=== PATIENT | female | born 1985 | race African-American/Black ===

== ENCOUNTER 2016-11-09 03:45 | Emergency (ER) | payer SELFPAY ==
[~2016-11-09] VITALS: Ht 162.6 cm; Wt 122.5 kg
[2016-11-09 04:08] LABS: Urine Bilirubin Negative (Negative); Urine Blood Negative /uL (Negative); Urine Color Yellow (Yellow); Urine Glucose Normal (Normal); Urine Ketone Negative (Negative); Urine Nitrite Negative (Negative); Urine RBC <1 /hpf (0 - 4); Urine Squamous Epithelial Cell FEW /hpf (<5); Urine Urobilinogen Normal (Negative)
[2016-11-09 04:37] LABS: Albumin 3.3 g/dL (3.4-5.0); BUN/Creatinine Ratio 21.1; Bilirubin, Total 0.6 mg/dL (0.2-1.0); Calcium 8.9 mg/dL (8.5-10.1); Magnesium 2.2 mg/dL (1.6-2.6); Potassium 3.7 mmol/L (3.5-5.1); Total Protein 7.7 g/dL (6.4-8.2)
[2016-11-09 04:38] LABS: Basophils # (auto) 0.1 uL; Basophils % (auto) 0.7 % (0.0-2.0); Eosinophils # (auto) 0 uL; Eosinophils % (auto) 0.3 % (0.0-7.0); Hematocrit 43.4 % (36.0-46.0); Hemoglobin 13.8 g/dL (12.2-16.2); Lymphocytes # (auto) 1.6 uL; Lymphocytes % (auto) 14.6 % (10.0-50.0); Mean Corpuscular Hemoglobin 29.5 pg (28.0-32.0); Mean Corpuscular Hgb Conc. 31.7 g/dL (32.0-36.0); Mean Corpuscular Volume 92.9 fL (80.0-100.0); Monocytes # (auto) 0.5 uL; Monocytes % (auto) 4.3 % (0.0-12.0); Neutrophils # (auto) 8.4 uL; Neutrophils % (auto) 80.1 % (37.0-80.0); Platelet Count (auto) 318 10^3/uL (140-450); Red Cell Distribution Width 12.6 % (11.6-16.0); White Blood Cell 10.6 10^3/uL (4.4-10.8)
[2016-11-09] MEDS ORDERED: SODIUM CHLORIDE 0.9% 1,000 ML IVB ONE (06:57)
[2016-11-09] MEDS ORDERED: METOCLOPRAMIDE HCL 5MG/ml INJ 2ml VIAL IV ONE (07:00)
[2016-11-09] MEDS ORDERED: KETOROLAC TROMETH 30 MG/ML 1ML VIAL IV ONE (07:00)
[2016-11-09 09:59] VITALS: BP 116/72
== END 2016-11-09 10:11 | disposition home or self-care (01) ==
LOC: ER 03:46
DX: N39.0 Urinary tract infection, site not specified (principal); R11.2 Nausea with vomiting, unspecified
CPT/HCPCS: 36415; 76705; 80053; 80307; 81001; 81025; 83690; 83735; 85025; 96361; 96374; 96375; 99285; J1885; J2765; J7030

== ENCOUNTER 2020-01-25 06:27 | Inpatient (IN) | payer MEDICAID ==
[~2020-01-25] VITALS: Ht 160 cm; Wt 127.0 kg
[2020-01-25] MEDS ORDERED: SODIUM CHLORIDE 0.9% 1,000 ML IVB ONE (09:02)
[2020-01-25] MEDS ORDERED: PANTOPRAZOLE 40 MG/10 ML VIAL INJ IV STA (09:02)
[2020-01-25] MEDS ORDERED: ONDANSETRON HCL 4 MG/2 ML VIAL IV ONE ×2 (09:15→10:30)
[2020-01-25] MEDS ORDERED: MORPHINE SULFATE 4 MG/ML SYR/VIAL IV ONE ×2 (09:15→10:30)
[2020-01-25 09:44] LABS: Basophils # (auto) 0 10 ^3/uL (0-0.2); Basophils % (auto) 0.1 % (0.0-2.0); Eosinophils # (auto) 0 10 ^3/uL (0-0.8); Hematocrit 43.2 % (36.0-46.0); Hemoglobin 14.1 g/dL (12.2-16.2); Lymphocytes # (auto) 0.8 10 ^3/uL (0.4-5.4); Lymphocytes % (auto) 6.3 % (10.0-50.0); Mean Corpuscular Hemoglobin 30.6 pg (28.0-32.0); Mean Corpuscular Hgb Conc. 32.8 g/dL (32.0-36.0); Mean Corpuscular Volume 93.4 fL (80.0-100.0); Monocytes # (auto) 0.4 10 ^3/uL (0-1.3); Monocytes % (auto) 2.9 % (0.0-12.0); Neutrophils # (auto) 11.5 10 ^3/uL (1.6-8.6); Neutrophils % (auto) 90.7 % (37.0-80.0); Nucleated Red Blood Cells % 0.1 %; Platelet Count (auto) 356 10^3/uL (140-450); Red Blood Cells 4.62 10^6/uL (4.0-5.20); Red Cell Distribution Width 12.7 % (11.8-14.3); White Blood Cell 12.6 10^3/uL (4.4-10.8)
[2020-01-25 09:52] LABS: Albumin 3.7 g/dL (3.4-5.0); Calcium 9.5 mg/dL (8.5-10.1); Potassium 3.7 mmol/L (3.5-5.1)
[2020-01-25 09:57] LABS: BUN/Creatinine Ratio 14.5; Total Protein 8.6 g/dL (6.4-8.2)
[2020-01-25] MEDS ORDERED: HYDROcodone-ACET 5/325MG TAB PO PRN (13:45)
[2020-01-25] MEDS ORDERED: LORazepam 0.5 MG TAB PO PRN (13:45)
[2020-01-25] MEDS ORDERED: ACETAMINOPHEN 325 MG TAB PO PRN (13:45)
[2020-01-25] MEDS: SODIUM CHLORIDE 0.9% 1,000 ML IV SCH (14:00)
[2020-01-25] MEDS ORDERED: HYDR-392 PO (14:41)
[2020-01-25 15:00] LABS: Basophils # (auto) 0 10 ^3/uL (0-0.2); Basophils % (auto) 0.3 % (0.0-2.0); Eosinophils # (auto) 0 10 ^3/uL (0-0.8); Eosinophils % (auto) 0.1 % (0.0-7.0); Hematocrit 44.5 % (36.0-46.0); Hemoglobin 14.8 g/dL (12.2-16.2); Lymphocytes # (auto) 1.3 10 ^3/uL (0.4-5.4); Lymphocytes % (auto) 11.6 % (10.0-50.0); Mean Corpuscular Hemoglobin 31.2 pg (28.0-32.0); Mean Corpuscular Hgb Conc. 33.2 g/dL (32.0-36.0); Mean Corpuscular Volume 93.8 fL (80.0-100.0); Monocytes # (auto) 0.6 10 ^3/uL (0-1.3); Monocytes % (auto) 4.9 % (0.0-12.0); Neutrophils # (auto) 9.6 10 ^3/uL (1.6-8.6); Neutrophils % (auto) 83.1 % (37.0-80.0); Platelet Count (auto) 305 10^3/uL (140-450); Red Blood Cells 4.75 10^6/uL (4.0-5.20); Red Cell Distribution Width 12.6 % (11.8-14.3); White Blood Cell 11.5 10^3/uL (4.4-10.8)
[2020-01-25 15:12] LABS: INR 0.97 (0.9-1.15)
--- NOTE | 2020-01-25 15:53 | NUR ---
MS admit from ER VIRGIL FERNANDEZ admitted to tele/MS after SBAR received. Patient oriented to MILDRED ROBERTSON, primary RN, unit, room, bed, and unit policies regarding patient care and visiting hours. Patient weighed by bedscale and encouraged to call if they need something. All questions and concerns addressed, patient verbalized understanding.
[2020-01-25] MEDS: DOCUSATE SOD 100 MG CAP PO PRN (16:30)
[2020-01-25] MEDS: ONDANSETRON HCL 4 MG/2 ML VIAL IV PRN ×2 (16:30→21:39)
[2020-01-25] MEDS: MORPHINE SULF INJ 2 MG/ML SYRINGE 1ML IV PRN ×2 (16:30→21:38)
[2020-01-25 17:00] VITALS: BP 122/76
--- NOTE | 2020-01-25 18:16 | NUR ---
CONSENTS PRINTED AND PLACED IN THE CHART, CHECK LIST PARTIALLY COMPLETED. CONSENTS TO BE SIGNED TONIGHT DUE TO PATIENT HAD A NARCOTIC AND NEEDS TO WAIT UNTIL 2029 TO SIGN DOCUMENTS.
--- NOTE | 2020-01-25 19:16 | NUR ---
endorsed care to night rn
--- NOTE | 2020-01-25 19:30 | NUR ---
Opening Shift Note Assumed care of patient, awake and alert. No S/S of distress/SOB or pain. Instructed on POC and to call for assist PRN, will continue to monitor for changes Q1hr and PRN. Bed locked in lowest position, HOB elevated at least 30 degrees, side rails up x 2 and call light is within reach.
[2020-01-25 20:00] VITALS: BP 142/82
[2020-01-25 22:00] VITALS: BP 142/82
--- NOTE | 2020-01-25 23:50 | NUR ---
UA COLLECTED UA COLLECTED AND SENT TO LAB
[2020-01-26 00:11] LABS: Urine Bacteria FEW /hpf (None Seen); Urine Blood Negative /uL (Negative); Urine Hyaline Cast FEW /lpf (0 - 2); Urine Mucus FEW (None Seen); Urine Specific Gravity 1.009 (1.001-1.035); Urine WBC 21 /hpf (0 - 5)
[2020-01-26 05:00] VITALS: BP 124/71
[2020-01-26] MEDS: ONDANSETRON HCL 4 MG/2 ML VIAL IV PRN ×3 (06:12→19:37)
[2020-01-26] MEDS: MORPHINE SULF INJ 2 MG/ML SYRINGE 1ML IV PRN ×3 (06:12→19:37)
[2020-01-26] MEDS: SODIUM CHLORIDE 0.9% 1,000 ML IV SCH (06:26)
--- NOTE | 2020-01-26 07:18 | NUR ---
END OF SHIFT NOTE ENDORSED CARE TO DAY SHIFT RN
--- NOTE | 2020-01-26 07:30 | NUR ---
Opening Shift Note Assumed care of patient, sleeping , respirations relaxed and even. No S/S of distress/SOB or pain.Patient reminded to remain NPO for procedure. Instructed on POC and to call for assist PRN, will continue to monitor for changes Q1hr and PRN. Bed locked in lowest position, Bed flat, side rails up x 2 and call light is within reach.
[2020-01-26 08:00] VITALS: BP 137/82
[2020-01-26 08:52] VITALS: BP 101/54
--- NOTE | 2020-01-26 09:50 | NUR ---
TAKEN TO PROCEDURE ENDORSED CARE TO PREOP AMADO MEDEIROS. PATIENT TOLERATED WELL.
[2020-01-26] MEDS ORDERED: ceFAZolin 1GM/50ML 50 ML IV ONE (09:59)
[2020-01-26] MEDS ORDERED: LIDOCAINE 1% (LOCAL ANESTH.) PF 5ml SDV ONE (10:29)
[2020-01-26] MEDS ORDERED: SUCCINYLCHOLINE CHLORIDE 20 MG/ML 10ML VIAL IV ONE (10:29)
[2020-01-26] MEDS ORDERED: MIDAZOLAM HCL 1MG/1ML-2 ML VIAL ONE (10:34)
[2020-01-26] MEDS ORDERED: PROPOFOL 10 MG/ML 20 ML IV ONE (10:35)
[2020-01-26] MEDS ORDERED: ROCURONIUM 10MG/ML 10ML VIAL IV ONE (10:35)
[2020-01-26] MEDS ORDERED: METOCLOPRAMIDE HCL 5MG/ml INJ 2ml VIAL ONE (10:38)
[2020-01-26] MEDS ORDERED: fentaNYL CITRATE 100 MCG/2 ML VL ONE (10:48)
[2020-01-26] MEDS ORDERED: ONDANSETRON HCL 4 MG/2 ML VIAL IV PRN (11:00)
[2020-01-26] MEDS ORDERED: NALOXONE HCL 0.4 MG/ML VIAL IV PRN (11:00)
[2020-01-26] MEDS ORDERED: HYDROmorphone HCL 2 MG/ML VL IV PRN (11:00)
[2020-01-26] MEDS ORDERED: ESMOLOL HCL 10 ML IV ONE (11:05)
[2020-01-26] MEDS ORDERED: hydrALAZINE HCL 20 MG/ML VL ONE (11:11)
[2020-01-26] MEDS ORDERED: GLYCOPYRROLATE 0.2 MG/ML 1ML VIAL ONE (11:20)
[2020-01-26] MEDS ORDERED: NEOSTIGMINE 1 MG/ML INJ (10mg/10ML VIAL) ONE (11:20)
--- NOTE | 2020-01-26 11:30 | NUR ---
RETURNED FROM PROCEDURE S/P LAPAROSCOPIC CHOLECYSTECTOMY. PATIENT TOLERATED WELL, MEDICATED IN POST OP PAIN REPORTED 5/10 TOLERABLE.THREE DRESSING DRY AND INTACT WITH BETADINE STAINS.WILL CONTINUE TO MONITOR. INSTRUCTED PATIENT TO CALL FOR ASSISTANCE. BED IN LOWEST POSITION, WHEELS LOCKED AND BED ALARM ON.
[2020-01-26] MEDS: HYDROmorphone HCL 2 MG/ML VL IV PRN ×2 (11:51→12:01)
[2020-01-26] MEDS ORDERED: cefTRIAXone 1GM/50ML D5W 50 ML IV ONE (12:45)
--- NOTE | 2020-01-26 16:30 | NUR ---
AMBULATION PATIENT AMBULATED WITH STANDBY ASSISTANCE TO THE BATHROOM. PATIENT ABLE TO URINATE APPROXIMATELY 350CC.TOLERATED AMBULATION WELL.
[2020-01-26 17:00] VITALS: BP 120/65
--- NOTE | 2020-01-26 17:30 | NUR ---
ABDOMINAL BINDER IN PLACE PATIENT TOLERATED WELL.
--- NOTE | 2020-01-26 18:57 | NUR ---
ENDORSED CARE TO NIGHT RN
--- NOTE | 2020-01-26 19:51 | NUR ---
open note assumed care of pt. upon entering room pt awake and alert. on room air no distress noted or expressed. pt reports pain in abdomen. this nurse to medicate per md and MAR. pt reports burping, but not passing gas as of yet. bowel sounds auscultated, and active. pt has abdominal binder in place and 3 incision sites with dressing that have small amount of drainage, but intact. pt updated on plan of care. bed locked, low and 2x rails up. all concerns addressed to this point. call light in reach, pt encouraged to call as needed. this nurse to round q1h and prn. pt also encouraged to notify this nurse of passing gas or BM or as well for assistance to restroom.
[2020-01-26 22:00] VITALS: BP 138/83
[2020-01-26] MEDS ORDERED: HYDROcodone-ACET 10/325MG TAB PO PRN (22:30)
[2020-01-27] MEDS: SODIUM CHLORIDE 0.9% 1,000 ML IV SCH ×2 (02:25→08:10)
[2020-01-27] MEDS ORDERED: MORPHINE SULF INJ 2 MG/ML SYRINGE 1ML IV PRN (02:30)
[2020-01-27 05:00] VITALS: BP 134/78
[2020-01-27 07:33] LABS: Basophils # (auto) 0 10 ^3/uL (0-0.2); Basophils % (auto) 0.2 % (0.0-2.0); Eosinophils # (auto) 0.2 10 ^3/uL (0-0.8); Eosinophils % (auto) 1.9 % (0.0-7.0); Hematocrit 35.9 % (36.0-46.0); Hemoglobin 11.8 g/dL (12.2-16.2); Lymphocytes # (auto) 1.9 10 ^3/uL (0.4-5.4); Lymphocytes % (auto) 22.1 % (10.0-50.0); Mean Corpuscular Hemoglobin 30.9 pg (28.0-32.0); Mean Corpuscular Volume 93.6 fL (80.0-100.0); Monocytes # (auto) 0.7 10 ^3/uL (0-1.3); Monocytes % (auto) 8.2 % (0.0-12.0); Neutrophils # (auto) 5.8 10 ^3/uL (1.6-8.6); Neutrophils % (auto) 67.6 % (37.0-80.0); Platelet Count (auto) 264 10^3/uL (140-450); Red Blood Cells 3.84 10^6/uL (4.0-5.20); Red Cell Distribution Width 12.4 % (11.8-14.3); White Blood Cell 8.6 10^3/uL (4.4-10.8)
[2020-01-27 07:44] LABS: Albumin 2.6 g/dL (3.4-5.0); Calcium 8.3 mg/dL (8.5-10.1); Potassium 3.5 mmol/L (3.5-5.1)
[2020-01-27 07:47] LABS: BUN/Creatinine Ratio 9.5; Total Protein 6.7 g/dL (6.4-8.2)
[2020-01-27 08:52] VITALS: BP 137/80
[2020-01-27] MEDS ORDERED: cefTRIAXone 1GM/50ML D5W 50 ML IV SCH (09:00)
--- NOTE | 2020-01-27 11:04 | NUR ---
Left a message to Dr. Mcintosh regarding pain meds, awaiting to call back.
[2020-01-27] MEDS ORDERED: HYDROcodone-ACET 5/325MG TAB PO PRN (11:15)
[2020-01-27] MEDS ORDERED: SENN-51 PO ×2 (11:15→11:16)
[2020-01-27] MEDS ORDERED: HYDR-4833 PO ×2 (11:15→11:16)
[2020-01-27] MEDS ORDERED: NALO4SPR2 ×2 (11:15→11:16)
[2020-01-27] MEDS: DOCUSATE SOD 100 MG CAP PO PRN (12:03)
[2020-01-27 12:49] VITALS: BP 145/70
--- NOTE | 2020-01-27 13:15 | NUR ---
PATIENT STATED SHE PASSED GAS.
[2020-01-27 13:35] VITALS: BP 145/70
--- NOTE | 2020-01-27 15:10 | NUR ---
Discharge instructions given as ordered. Encourage to follow up with PMD (FOLLOW UP WITH DR. SAINI IN 2 WEEKS AD[address]ESS : [id number], [place], [address] #[phone] EXT : [phone]. FOLLOW UP WITH PCP ERIC WHITLOCK IN 1-2 WEEKS #[phone] ADDRESS : [id number], [place] [address] )as instructed. All questions and concerns addressed. Patient verbalized understanding. Medication reconciliation form completed and copy given to patient. IV removed with catheter intact, pressure dressing applied. Patient taken to vehicle via wheelchair with all personal belongings, accompanied by staff and family member. No distress noted at time of departure.
== END 2020-01-27 15:10 | disposition home or self-care (01) | DRG 263 ==
LOC: ER 06:27 → OVERFLOW 06:28 → WEST WING 15:53
PROVIDERS: ATTEND Hospitalist
PROC: 3E013GC Introduction of Other Therapeutic Substance into Subcutaneous Tissue, Percutaneous Approach (ICD-10-PCS; 2020-01-26)
PROC: 0FT44ZZ Resection of Gallbladder, Percutaneous Endoscopic Approach (ICD-10-PCS; principal; 2020-01-26 10:37)
DX: K80.00 Calculus of gallbladder with acute cholecystitis without obstruction (principal); E66.01 Morbid (severe) obesity due to excess calories; F17.210 Nicotine dependence, cigarettes, uncomplicated; K21.9 Gastro-esophageal reflux disease without esophagitis; I10 Essential (primary) hypertension; Z68.42 Body mass index [BMI] 45.0-49.9, adult
CPT/HCPCS: 36415; 71045; 76705; 80053; 81001; 81025; 83690; 85025; 85610; 85730; 86850; 86900; 86901; 96361; 96374; 96375; 96376; C9113; G0378; J0330; J0690; J0696; J2250; J2405; J2704